=== PATIENT | female | born 1940 | race Caucasian/White ===

== ENCOUNTER → 2018-03-14 | Outpatient (CLI) | payer MEDICARE, OTHER ==
[~2018-03-14] MED LIST: ACEASPCAF PO; ATEN100; ATENOLOL PO; Armour Thyroid90 MG PO; B Complex1 EAC2 PO; CHLO25B PO; Cleocin HCl300 MG PO; DULO60; ESTRADIOL PO; Estradiol0.5 MG PO; Excedrin Extra1 EACH; GLIM4 PO; Galzin50 MG PO; HCTZ PO; HYDACE5; HYDACE5 PO; HYDCHL25; HYDMOR2 PO; HYDROCHLOROTHIAZIDE PO; LEVFLO500 PO; METF500 PO; MIRALAX119 GM; Metformin HCl750 MG PO; ONDA4ODT MM; ONDA4ODT PO; PENNAL50; PROBIOTIC COMP1 EACH PO; PROM25 PO; THYR60; THYR60 PO; TRAM50 PO; VICODIN HP 10-1 EACH PO; VITAMIN D32000 UNIT PO; [UNRECOGNIZED DRUG - REMARK]
[2018-03-14 13:11] LABS: Bilirubin, Urine Neg (Neg); Blood, Urine 2+ (Neg); Glucose Qualitative, Urine Neg (Neg); Ketones, Urine Neg (Neg); Leukocyte Esterase, Urine Neg (Neg); Nitrite, Urine Neg (Neg); Protein, Urine Neg (Neg); Specific Gravity, Urine 1.015 (1.003-1.022); Urobilinogen, Urine NORM (Normal)
[2018-03-14 13:39] LABS: Appearance, Urine Clear (Clear); Color, Urine Yellow (P-Yellow)
[2018-03-14 13:49] LABS: Bacteria Not Seen /hpf; Squamous Epithelial Cells Few /hpf (Few); White Blood Cells, Urine Not Seen /hpf (0-5)
== END ==
LOC: LAB SHORT 10:05 → LAB 10:05
PROVIDERS: Nurse Practitioner Family
DX: R35.0 Frequency of micturition (principal)
CPT/HCPCS: 81001

== ENCOUNTER → 2018-03-25 | Outpatient (CLI) | payer MEDICARE, OTHER | LOC: PLD 08:15 → LAB SHORT 08:15 | DX: D22.72 Melanocytic nevi of left lower limb, including hip (principal) | CPT/HCPCS: 88305 ==

== ENCOUNTER → 2018-05-02 | Outpatient (CLI) | payer MEDICARE, OTHER ==
[2018-05-02 14:57] LABS: Source, Urine Clean Catch
[2018-05-02 16:24] LABS: Appearance, Urine Clear (Clear); Bilirubin, Urine Neg (Neg); Blood, Urine 1+ (Neg); Color, Urine Yellow (P-Yellow); Glucose Qualitative, Urine Neg (Neg); Ketones, Urine Neg (Neg); Leukocyte Esterase, Urine Neg (Neg); Nitrite, Urine Neg (Neg); Protein, Urine Neg (Neg); Specific Gravity, Urine 1.005 (1.003-1.022); Urobilinogen, Urine NORM (Normal)
[2018-05-02 16:33] LABS: White Blood Cells, Urine 0-2 /hpf (0-5)
[2018-05-02 16:34] LABS: Bacteria Few /hpf; Squamous Epithelial Cells Not Seen /hpf (Few)
== END ==
LOC: LAB 14:55 → LAB SHORT 14:55
PROVIDERS: Nurse Practitioner Family
DX: N39.41 Urge incontinence (principal)
CPT/HCPCS: 81001

== ENCOUNTER 2018-12-05 20:29 | Emergency (ER) | payer MEDICARE, OTHER ==
[~2018-12-05] VITALS: Ht 167.6 cm; Wt 81.7 kg
[2018-12-05] MEDS ORDERED: Klor-Con 1010 MEQ PO (22:38)
[2018-12-05] MEDS ORDERED: TORSE20 PO (22:39)
[2018-12-05] MEDS ORDERED: SPIR25 PO (22:39)
[2018-12-05] MEDS ORDERED: DULO60 PO (22:40)
[2018-12-05] MEDS ORDERED: METO25ER PO (22:40)
[2018-12-05 23:31] LABS: BASOPHILS ABSOLUTE AUTO 0.08 K/mm3 (0.00-0.23); BASOPHILS PERCENT AUTO 1 % (0-2); EOSINOPHILS ABSOLUTE AUTO 0.25 K/mm3 (0.00-0.68); EOSINOPHILS PERCENT AUTO 3 % (0-6); Hematocrit 37.1 % (33.0-51.0); Hemoglobin 12.3 g/dL (11.5-16.0); IMMATURE GRAN ABSOLUTE AUTO 0.02 K/mm3 (0.00-0.10); IMMATURE GRAN PERCENT AUTO 0 % (0-1); LYMPHOCYTES ABSOLUTE AUTO 2.69 K/mm3 (0.84-5.20); LYMPHOCYTES PERCENT AUTO 31 % (21-46); MONOCYTES ABSOLUTE AUTO 0.86 K/mm3 (0.16-1.47); MONOCYTES PERCENT AUTO 10 % (4-13); Mean Corpuscular HGB 31.6 pg (26.0-34.0); Mean Corpuscular HGB Conc 33.2 g/dL (31.5-36.5); Mean Corpuscular Volume 95 fL (80-100); Mean Platelet Volume 9.2 fL (9.1-12.4); NEUTROPHILS ABSOLUTE AUTO 4.84 K/mm3 (1.96-9.15); NEUTROPHILS PERCENT AUTO 55 % (41-73); Platelet Count 318 K/mm3 (150-400); RDW Coefficient Variation 12.6 % (11.7-14.2); RDW Standard Deviation 43.6 fL (35.1-46.3); Red Blood Cell Count 3.89 M/mm3 (3.80-5.20); White Blood Cell Count 8.74 K/mm3 (4.00-11.30)
[2018-12-05 23:50] LABS: Alanine Aminotransfer (ALT/SGP 16 U/L (12-78); Albumin, Blood 3.7 g/dL (3.4-5.0); Alk Phos 128 U/L (50-136); Anion Gap 10 mmol/L (6-16); Aspartate Aminotrans (AST/SGOT 14 U/L (12-37); Bilirubin, Total 0.4 mg/dL (0.1-1.0); Blood Urea Nitrogen 31 mg/dL (8-24); Bun/Creatinine Ratio 19.4 (12.0-20.0); CO2, Blood 24 mmol/L (21-32); Calcium, Blood 8.9 mg/dL (8.5-10.1); Chloride, Blood 104 mmol/L (98-108); Globulin, Blood 3.6 g/dL (2.2-4.0); Glomerular Filtration Rate 33 (60-); Glucose, Blood 97 mg/dL (70-99); Potassium, Blood 3.9 mmol/L (3.5-5.5); Sodium, Blood 138 mmol/L (136-145); Total Protein, Blood 7.3 g/dL (6.4-8.2); Troponin I <0.015 ng/mL (0.000-0.040)
[2018-12-06 00:15] LABS: Source, Urine Clean Catch
[2018-12-06 00:24] LABS: Bilirubin, Urine Neg (Neg); Blood, Urine Neg (Neg); Glucose Qualitative, Urine Neg (Neg); Ketones, Urine 1+ (Neg); Leukocyte Esterase, Urine Neg (Neg); Nitrite, Urine Neg (Neg); Protein, Urine Neg (Neg); Specific Gravity, Urine 1.015 (1.003-1.022); Urobilinogen, Urine NORM (Normal)
[2018-12-06 00:27] LABS: Appearance, Urine Clear (Clear); Color, Urine Yellow (P-Yellow)
== END 2018-12-06 01:00 | disposition home or self-care (01) ==
LOC: ER 20:29
PROVIDERS: Emergency Medicine
DX: N17.9 Acute kidney failure, unspecified (principal); E86.0 Dehydration; Z88.0 Allergy status to penicillin; Z88.8 Allergy status to other drugs, medicaments and biological substances; Z88.1 Allergy status to other antibiotic agents; Z79.899 Other long term (current) drug therapy; Z79.84 Long term (current) use of oral hypoglycemic drugs; I10 Essential (primary) hypertension; E03.9 Hypothyroidism, unspecified
CPT/HCPCS: 36415; 51798; 71046; 80053; 81003; 83880; 84484; 85025; 93005; 93010; 96360; 96361; 99284-25; J7030; P9612

== ENCOUNTER → 2018-12-30 | Outpatient (CLI) | payer MEDICARE, OTHER ==
[~2018-12-30] MED LIST changes: +DULO60 PO; +Klor-Con 1010 MEQ PO; +METO25ER PO; +SPIR25 PO; +TORSE20 PO
[2018-12-31 14:09] LABS: HPV 16 Negative (Negative); HPV 18 Negative (Negative); HPV OTHER HR TYPES Negative (Negative)
== END | disposition home or self-care (01) ==
LOC: LAB 11:10 → LAB SHORT 11:10
PROVIDERS: Nurse Practitioner Women's Health
DX: Z12.72 Encounter for screening for malignant neoplasm of vagina (principal); Z91.89 Other specified personal risk factors, not elsewhere classified
CPT/HCPCS: 87624; G0123

== ENCOUNTER → 2019-01-16 | Outpatient (CLI) | payer MEDICARE, OTHER ==
[2019-01-16 13:06] LABS: Microalbumin, Urine Quant. <5.000 mg/L (0.000-20.000)
== END | disposition home or self-care (01) ==
LOC: LAB 05:35 → LAB SHORT 05:35 → LAB FUT 01-14 12:55
PROVIDERS: Internal Medicine Nephrology
DX: N18.3 Chronic kidney disease, stage 3 (moderate) (principal); D63.1 Anemia in chronic kidney disease; N25.81 Secondary hyperparathyroidism of renal origin; E55.9 Vitamin D deficiency, unspecified; E78.00 Pure hypercholesterolemia, unspecified; R76.9 Abnormal immunological finding in serum, unspecified; R94.5 Abnormal results of liver function studies; R94.6 Abnormal results of thyroid function studies; D51.8 Other vitamin B12 deficiency anemias; D52.8 Other folate deficiency anemias; D50.9 Iron deficiency anemia, unspecified
CPT/HCPCS: 81050; 82043; 82570; 84156

== ENCOUNTER → 2020-11-30 | Outpatient (CLI) | payer MEDICARE, OTHER ==
[2020-11-30 11:03] LABS: Source, Urine Clean Catch
[2020-11-30 13:36] LABS: Appearance, Urine Clear (Clear); Blood, Urine 2+ (Neg); Color, Urine Yellow (P-Yellow); Glucose Qualitative, Urine Neg (Neg); Ketones, Urine Neg (Neg); Leukocyte Esterase, Urine Neg (Neg); Nitrite, Urine Neg (Neg); Protein, Urine Neg (Neg); Specific Gravity, Urine 1.015 (1.003-1.022); Urobilinogen, Urine 1+ (Normal); pH, Urine 6.5 (5.0-8.0)
[2020-11-30 13:47] LABS: Bilirubin, Urine 1+ (Neg)
[2020-11-30 13:48] LABS: Bacteria Rare /hpf; Calcium Oxalate Crystals Mod /hpf; Red Blood Cells, Urine Not Seen /hpf (0-2); Squamous Epithelial Cells Few /hpf (Few); White Blood Cells, Urine Not Seen /hpf (0-5)
== END | disposition home or self-care (01) ==
LOC: LAB 11:02 → LAB SHORT 11:02 → LAB FUT 11-30 10:40
PROVIDERS: Internal Medicine Nephrology
DX: N39.0 Urinary tract infection, site not specified (principal)
CPT/HCPCS: 81001

== ENCOUNTER 2021-03-23 09:35 | Day surgery (SDC) | payer MEDICARE, OTHER ==
[~2021-03-23] VITALS: Ht 162.6 cm; Wt 90.4 kg
== END 2021-03-23 11:57 | disposition home or self-care (01) ==
LOC: ORSCSDS 09:35
PROVIDERS: Internal Medicine Gastroenterology
PROC: 0DBM8ZX Excision of Descending Colon, Via Natural or Artificial Opening Endoscopic, Diagnostic (ICD-10-PCS; principal; 2021-03-23 10:45)
PROC: 0DBL8ZX Excision of Transverse Colon, Via Natural or Artificial Opening Endoscopic, Diagnostic (ICD-10-PCS; principal; 2021-03-23 10:45)
DX: R10.31 Right lower quadrant pain (principal); Z86.010 Personal history of colon polyps; D12.3 Benign neoplasm of transverse colon; D12.4 Benign neoplasm of descending colon; K57.30 Diverticulosis of large intestine without perforation or abscess without bleeding; K64.8 Other hemorrhoids; Z80.0 Family history of malignant neoplasm of digestive organs; Z79.84 Long term (current) use of oral hypoglycemic drugs; I10 Essential (primary) hypertension; E03.9 Hypothyroidism, unspecified; E11.9 Type 2 diabetes mellitus without complications; G47.33 Obstructive sleep apnea (adult) (pediatric); Z79.899 Other long term (current) drug therapy
CPT/HCPCS: 82947; 88305; J2704; J7120

== ENCOUNTER 2021-05-24 06:24 | Day surgery (SDC) | payer MEDICARE, OTHER ==
[~2021-05-24] VITALS: Ht 162.6 cm; Wt 92.0 kg
[~2021-05-24 06:24] MED LIST changes: +ACET500 PO; +ARMOUR THYROID90 M1 PO; +ENTRESTO 24 MG1 EAC2 PO; +ESTRADIOL42.5 GM; +HYDACE10B PO; +K-Dur20 MEQ PO; +METFORMIN HCL500 MG PO; +MULTIPLE VITAM1 EACH PO; +Vitamin B-Comp1 EAC7 PO; +Voltaren100 GM
--- NOTE | 2021-05-24 09:12 | NUR ---
05/24/21 0912 Jessica Cervantes DROP IN AT 0649; PLEDGET IN AT [phone]
== END 2021-05-24 08:37 | disposition home or self-care (01) ==
LOC: ORSCSDS 06:24
PROVIDERS: Ophthalmology
PROC: 08RJ3JZ Replacement of Right Lens with Synthetic Substitute, Percutaneous Approach (ICD-10-PCS; principal; 2021-05-24 08:00)
DX: H25.11 Age-related nuclear cataract, right eye (principal); I10 Essential (primary) hypertension; G47.33 Obstructive sleep apnea (adult) (pediatric); E03.9 Hypothyroidism, unspecified; Z79.899 Other long term (current) drug therapy; Z79.84 Long term (current) use of oral hypoglycemic drugs; E66.9 Obesity, unspecified; Z68.34 Body mass index [BMI] 34.0-34.9, adult
CPT/HCPCS: 82947; J2001; J2250; J3010; J3301; J7040; J7120; V2632

== ENCOUNTER 2021-06-14 06:46 | Day surgery (SDC) | payer MEDICARE, OTHER ==
[~2021-06-14] VITALS: Ht 162.6 cm; Wt 92.4 kg
--- NOTE | 2021-06-14 07:01 | NUR ---
06/14/21 0700 Monica Garcia TETRACAINE APPLIED TO LEFT EYE AT 0656 AND PLEDGET APPLIED TO LEFT EYE AT 0659
--- NOTE | 2021-06-14 08:42 | NUR ---
06/14/21 0842 MAULIK DOUGHERTY PAIN IN L EYE 05/11
== END 2021-06-14 08:43 | disposition home or self-care (01) ==
LOC: ORSCSDS 06:46
PROVIDERS: Ophthalmology
PROC: 08RK3JZ Replacement of Left Lens with Synthetic Substitute, Percutaneous Approach (ICD-10-PCS; principal; 2021-06-14 08:00)
DX: H25.12 Age-related nuclear cataract, left eye (principal); I10 Essential (primary) hypertension; G47.33 Obstructive sleep apnea (adult) (pediatric); E03.9 Hypothyroidism, unspecified; I50.9 Heart failure, unspecified; Z79.899 Other long term (current) drug therapy; Z79.84 Long term (current) use of oral hypoglycemic drugs
CPT/HCPCS: 82947; A9270; J2001; J2250; J3010; J3300; J3301; J7040; V2632

== ENCOUNTER 2022-02-14 10:47 | Day surgery (SDC) | payer MEDICARE, OTHER ==
[~2022-02-14] VITALS: Ht 162.6 cm; Wt 93.3 kg
--- NOTE | 2022-02-14 13:26 | NUR ---
02/14/22 1326 Tara Solis PT. INSTRUCTED TO KEEP AN EYE ON HER BP. BP ELEVATED HERE. DR. FINNEGAN AWARE PT. WITH ELEVATED BP & HADN'T TAKEN HER METOPROLOL FOR 2 DAYS. PT. HAD VERBALIZED THAT SHE HAD RUN OUT OF METOPROLOL.
== END 2022-02-14 13:00 | disposition home or self-care (01) ==
LOC: ORSCSDS 10:47
PROVIDERS: Internal Medicine Gastroenterology
PROC: 0DB78ZX Excision of Stomach, Pylorus, Via Natural or Artificial Opening Endoscopic, Diagnostic (ICD-10-PCS; principal; 2022-02-14 12:00)
PROC: 0DB98ZX Excision of Duodenum, Via Natural or Artificial Opening Endoscopic, Diagnostic (ICD-10-PCS; principal; 2022-02-14 12:00)
PROC: 0D758ZZ Dilation of Esophagus, Via Natural or Artificial Opening Endoscopic (ICD-10-PCS; principal; 2022-02-14 12:00)
DX: R10.11 Right upper quadrant pain (principal); K92.1 Melena; K22.2 Esophageal obstruction; K44.9 Diaphragmatic hernia without obstruction or gangrene; I10 Essential (primary) hypertension; G47.33 Obstructive sleep apnea (adult) (pediatric); J44.9 Chronic obstructive pulmonary disease, unspecified; E11.9 Type 2 diabetes mellitus without complications; N18.30 Chronic kidney disease, stage 3 unspecified; Z79.84 Long term (current) use of oral hypoglycemic drugs; Z79.899 Other long term (current) drug therapy; E66.9 Obesity, unspecified; Z68.35 Body mass index [BMI] 35.0-35.9, adult
CPT/HCPCS: 82947; 88305; 88342; C1726; J2704; J7120

== ENCOUNTER 2023-07-23 21:28 | Inpatient (IN) | payer MEDICARE, OTHER ==
[~2023-07-23] VITALS: Ht 165.1 cm; Wt 96.3 kg
[~2023-07-23 21:28] MED LIST changes: -ESTRADIOL42.5 GM; +ESTRADIOL42.5 GM VAG
[2023-07-23 22:29] LABS: BASOPHILS ABSOLUTE AUTO 0.06 K/mm3 (0.00-0.23); BASOPHILS PERCENT AUTO 1 % (0-2); EOSINOPHILS ABSOLUTE AUTO 0.08 K/mm3 (0.00-0.68); EOSINOPHILS PERCENT AUTO 1 % (0-6); Hematocrit 43.2 % (33.0-51.0); Hemoglobin 13.6 g/dL (11.5-16.0); IMMATURE GRAN ABSOLUTE AUTO 0.04 K/mm3 (0.00-0.10); IMMATURE GRAN PERCENT AUTO 1 % (0-1); LYMPHOCYTES PERCENT AUTO 14 % (21-46); MONOCYTES PERCENT AUTO 8 % (4-13); Mean Corpuscular HGB 29.6 pg (26.0-34.0); Mean Corpuscular HGB Conc 31.5 g/dL (31.5-36.5); Mean Corpuscular Volume 94 fL (80-100); NEUTROPHILS ABSOLUTE AUTO 6.68 K/mm3 (1.96-9.15); NEUTROPHILS PERCENT AUTO 76 % (41-73); Platelet Count 242 K/mm3 (150-400); RDW Coefficient Variation 13.2 % (11.7-14.2); White Blood Cell Count 8.76 K/mm3 (4.00-11.30)
[2023-07-23 22:32] LABS: Bicarbonate Venous 28.8 mmol/L (24.0-30.0); PCO2 Venous 60.3 mmHg (38-42); pH Blood Venous 7.34 (7.34-7.37)
[2023-07-23 22:53] LABS: Magnesium, Blood 1.7 mg/dL (1.6-2.4)
[2023-07-23 23:24] LABS: International Normalized Ratio 1.05
[2023-07-23 23:47] LABS: Albumin, Blood 3.6 g/dL (3.4-5.0); Albumin/Globulin Ratio 1.2 (0.8-1.8); Bilirubin, Total 0.7 mg/dL (0.1-1.0); Bun/Creatinine Ratio 17.3 (12.0-20.0); Calcium, Blood 8.8 mg/dL (8.5-10.1); Creatinine, Blood 1.1 mg/dL (0.40-1.00); Globulin, Blood 3.1 g/dL (2.2-4.0); Potassium, Blood 4.4 mmol/L (3.5-5.5); Total Protein, Blood 6.7 g/dL (6.4-8.2)
[2023-07-23 23:53] LABS: Source, Urine Straight Cath
[2023-07-23 23:58] LABS: Bilirubin, Urine Neg (Neg); Blood, Urine 1+ (Neg); Glucose Qualitative, Urine Neg (Neg); Ketones, Urine Neg (Neg); Leukocyte Esterase, Urine Neg (Neg); Nitrite, Urine Neg (Neg); Protein, Urine 1+ (Neg); Urobilinogen, Urine NORM (Normal)
[2023-07-24 00:09] LABS: Appearance, Urine Clear (Clear); Color, Urine Yellow (P-Yellow)
[2023-07-24 00:11] LABS: Bacteria Mod /hpf; Hyaline Casts 0-2 /lpf (0-2); Red Blood Cells, Urine 0-2 /hpf (0-2); Squamous Epithelial Cells Mod /hpf (Few); White Blood Cells, Urine 0-2 /hpf (0-5)
[2023-07-24 00:41] LABS: Adenovirus Not Detected (NOT DETECT); Bordetella pertussis Not Detected (NOT DETECT); Chlamydophila pneumoniae Not Detected (NOT DETECT); Coronavirus 229E Not Detected (NOT DETECT); Coronavirus HKU1 Not Detected (NOT DETECT); Coronavirus NL63 Not Detected (NOT DETECT); Coronavirus OC43 Not Detected (NOT DETECT); Human Metapneumovirus Not Detected (NOT DETECT); Human Rhinovirus/Enterovirus Not Detected (NOT DETECT); Influenza A/2009-H1 Not Detected (NOT DETECT); Influenza A/H1 Not Detected (NOT DETECT); Influenza A/H3 Not Detected (NOT DETECT); Influenza B Not Detected (NOT DETECT); Mycoplasma pneumoniae Not Detected (NOT DETECT); Parainfluenza Virus 1 Not Detected (NOT DETECT); Parainfluenza Virus 2 Not Detected (NOT DETECT); Parainfluenza Virus 3 Not Detected (NOT DETECT); Parainfluenza Virus 4 Not Detected (NOT DETECT); Respiratory Syncytial Virus Not Detected (NOT DETECT); SARS-Cov-2 (COVID-19), BioFire Not Detected (NOT DETECT)
[2023-07-24 04:00] VITALS: BP 100/62
[2023-07-24] MEDS ORDERED: LYRICA150 M1 PO (04:00)
[2023-07-24] MEDS ORDERED: FLUT.05NI (04:00)
[2023-07-24] MEDS ORDERED: Diovan160 MG PO (04:03)
[2023-07-24] MEDS ORDERED: BUPRENO-NALOX1 EAC2 SL (04:04)
[2023-07-24 04:39] VITALS: BP 118/72
--- NOTE | 2023-07-24 04:57 | NUR ---
ARRIVAL TO 329 NOTE: RECEIVED REPORT FROM FLASH DESIGNER LIZET STONE ~ 0400 THIS AM. PT SHORTLY ARRIVED TO ROOM 329 VIA [facility]. ABLE TO 1 ASSIST TRANSFER TO HOSPITAL BED WITH MINIMAL ASSISTANCE. GAIT IS A LITTLE UNSTEADY HOWEVER. A/Ox3 AND COOPERATIVE WITH CARE. KNEW WHERE SHE WAS, , PRESIDENT, BUT NOT THE MONTH. ANSWERS QUESTIONS APPROPRIATELY AND ABLE TO MAKE HER NEEDS KNOWN. CARDIAC, REMAINS IN SR 80-90'S W/1DEGREE BLOCK PER TELE REPORT WITH NO REPORTS OF CP OR PRESSURE. SBP REMAINS STABLE RANGING 100-110'S. RESPIRATORY, MAINTAINS SPO2 >90% ON 2L VIA WITH NO REPORTS OF SOB OR DYSPNEA AT REST. BASELINE PT IS ON RA, FIN INSPIRATORY CRACKLES NOTED IN THE BASES. GI/, ABD SOFT/NON-TENDER, BS PRESENT IN ALL QUADRANTS. ABLE TO ABULATE TO BSC TO VOID. ASSESSED PT FOR RISKS OF ANY IGNITION SOURCES WELL BEHAVIORS FOR INCREASED RISKS OF FIRE DANGER. PT EDUCATED ON COMMON SOURCES OF IGNITION WELL NEED TO KEEP A SAFE ENVIRONMENT. PT VOICED UNDERSTANDING. NO NEW ORDERS AT THIS TIME, WILL REPORT TO ONCOMING RN. TERENCE CLEMENTE UPON ARRIVAL TO ROOM 329
[2023-07-24 05:23] LABS: Base Excess Venous 6.3 mmol/L; Bicarbonate Venous 28.1 mmol/L (24.0-30.0); PCO2 Venous 65.9 mmHg (38-42)
[2023-07-24 05:47] LABS: BASOPHILS ABSOLUTE AUTO 0.08 K/mm3 (0.00-0.23); BASOPHILS PERCENT AUTO 1 % (0-2); EOSINOPHILS ABSOLUTE AUTO 0.14 K/mm3 (0.00-0.68); EOSINOPHILS PERCENT AUTO 2 % (0-6); Hematocrit 40.8 % (33.0-51.0); Hemoglobin 12.7 g/dL (11.5-16.0); IMMATURE GRAN ABSOLUTE AUTO 0.03 K/mm3 (0.00-0.10); IMMATURE GRAN PERCENT AUTO 0 % (0-1); LYMPHOCYTES ABSOLUTE AUTO 1.87 K/mm3 (0.84-5.20); LYMPHOCYTES PERCENT AUTO 21 % (21-46); MONOCYTES ABSOLUTE AUTO 1.04 K/mm3 (0.16-1.47); MONOCYTES PERCENT AUTO 12 % (4-13); Mean Corpuscular HGB 29.5 pg (26.0-34.0); Mean Corpuscular HGB Conc 31.1 g/dL (31.5-36.5); Mean Corpuscular Volume 95 fL (80-100); Mean Platelet Volume 10.5 fL (9.1-12.4); NEUTROPHILS ABSOLUTE AUTO 5.69 K/mm3 (1.96-9.15); NEUTROPHILS PERCENT AUTO 64 % (41-73); Platelet Count 213 K/mm3 (150-400); RDW Coefficient Variation 13.3 % (11.7-14.2); RDW Standard Deviation 47.1 fL (35.1-46.3); Red Blood Cell Count 4.31 M/mm3 (3.80-5.20); White Blood Cell Count 8.85 K/mm3 (4.00-11.30)
[2023-07-24 06:02] LABS: Albumin, Blood 3.2 g/dL (3.4-5.0); Albumin/Globulin Ratio 1.1 (0.8-1.8); Bilirubin, Total 0.8 mg/dL (0.1-1.0); Calcium, Blood 8.5 mg/dL (8.5-10.1); Creatinine, Blood 1.25 mg/dL (0.40-1.00); Magnesium, Blood 1.7 mg/dL (1.6-2.4); Potassium, Blood 4.5 mmol/L (3.5-5.5); Total Protein, Blood 6.2 g/dL (6.4-8.2)
[2023-07-24 07:21] VITALS: BP 149/84
--- NOTE | 2023-07-24 11:08 | NUR ---
VERBAL FROM DR. SINGH TO DC ENTRESTO AND ORDER LYRICA 150MG.
--- NOTE | 2023-07-24 13:56 | NUR ---
1345- RN RECEIVED VERBAL FROM DR. SINGH VIA PHONE TO ORDER METOPROLOL 50MG DAILY, LOSARTAN 100MG (PT'S HOME DOSE IS 160MG VALSARTAN), PREGABALIN 150MG BID, AND DC GABAPENTIN. RN VERIFIED WITH AURELIO IN PHARMACY THAT VALSARTAN 160MG=LOSARTAN 100MG.
--- NOTE | 2023-07-24 18:40 | NUR ---
DC- NO ACUTE EVENTS THIS SHIFT. PT IS ON RA NOW. AAOX3. PT IS DISORIENTED TO SITUATION. SBA TO THE BATHROOM.
[2023-07-24 20:38] VITALS: BP 160/98
[2023-07-25 03:19] VITALS: BP 145/88
--- NOTE | 2023-07-25 04:09 | NUR ---
SHIFT SUMMARY; NO ACUTE CHANGES OVERNIGHT. THE PT IS AXO X3, FORGETFUL AT TIMES. THE PT IS A STANDBY ASSIST, ALTHOUGH SHE DOES NOT ALWAYS CALL BEFORE ATTEMPTING OOB. IT IS FOR THIS REASON THE BED ALARM IS ON THE PTS BED FOR THE DURATION OF THE NIGHT. THE PT HAS BEEN SLEEPING IN BED FOR THE DURATION OF THE NIGHT. THE PT DENIES ANY SOB, CHEST PAIN/PRESSURE OR PAIN. THE PT DID ENDORSE SOME NAUSEA AT THE BEGINNING OF THE SHIFT BUT WAS MEDICATED W/ PO ZOFRAN W/ MILD RELIEF. CURRENTLY THE PT IS SLEEPING IN BED WITH THE BED IN THE LOWEST POSITION AND THE CALL LIGHT AT BEDSIDE. FIRE SAFETY MAINTAINED T/O THE NIGHT.
[2023-07-25 05:19] LABS: BASOPHILS ABSOLUTE AUTO 0.06 K/mm3 (0.00-0.23); BASOPHILS PERCENT AUTO 1 % (0-2); EOSINOPHILS ABSOLUTE AUTO 0.32 K/mm3 (0.00-0.68); EOSINOPHILS PERCENT AUTO 5 % (0-6); Hemoglobin 13.5 g/dL (11.5-16.0); IMMATURE GRAN ABSOLUTE AUTO 0.01 K/mm3 (0.00-0.10); IMMATURE GRAN PERCENT AUTO 0 % (0-1); LYMPHOCYTES ABSOLUTE AUTO 1.94 K/mm3 (0.84-5.20); LYMPHOCYTES PERCENT AUTO 30 % (21-46); MONOCYTES ABSOLUTE AUTO 0.77 K/mm3 (0.16-1.47); MONOCYTES PERCENT AUTO 12 % (4-13); Mean Corpuscular HGB 29.7 pg (26.0-34.0); Mean Corpuscular HGB Conc 32.1 g/dL (31.5-36.5); Mean Corpuscular Volume 92 fL (80-100); NEUTROPHILS ABSOLUTE AUTO 3.44 K/mm3 (1.96-9.15); NEUTROPHILS PERCENT AUTO 53 % (41-73); Platelet Count 216 K/mm3 (150-400); RDW Coefficient Variation 12.8 % (11.7-14.2); RDW Standard Deviation 43.4 fL (35.1-46.3); Red Blood Cell Count 4.55 M/mm3 (3.80-5.20); White Blood Cell Count 6.54 K/mm3 (4.00-11.30)
[2023-07-25 05:46] LABS: Albumin, Blood 3.3 g/dL (3.4-5.0); Anion Gap 5 mmol/L (6-16); Blood Urea Nitrogen 20 mg/dL (8-24); CO2, Blood 33 mmol/L (21-32); Calcium, Blood 8.8 mg/dL (8.5-10.1); Chloride, Blood 102 mmol/L (98-108); Creatinine, Blood 1.11 mg/dL (0.40-1.00); Glomerular Filtration Rate 50 (60-); Glucose, Blood 141 mg/dL (70-99); Magnesium, Blood 1.9 mg/dL (1.6-2.4); Phosphorus, Blood 3.8 mg/dL (2.5-4.9); Sodium, Blood 140 mmol/L (136-145)
[2023-07-25 07:28] VITALS: BP 162/94
[2023-07-25] MEDS ORDERED: FURO20 PO (12:45)
--- NOTE | 2023-07-25 13:45 | NUR ---
SHIFT SUMMARY AND DISCHARGE PATIENT DISCHARGED TO HOME. DISCHARGE INSTRUCTIONS REVIEWED WITH PATIENT. IV DC'D. BELONGINGS SENT HOME WITH PATIENT. PATIENT ABLE TO INDEPENDENTLY AMBULATE IN THE ROOM. EDUCATION PROVIDED RELATED TO DIURETICS AND THE IMPORTANCE OF WEIGHING. PATIENT DECLINED INSULIN DOSE PRIOR TO DISCHARGE BECAUSE PATIENT DOES NOT USE INSULIN AT HOME. PATIENT TO RESTART ORAL AGENTS AT HOME.
== END 2023-07-25 14:20 | disposition home health service (06) | DRG 291 ==
LOC: ER 21:28 → MEDS 21:29
PROVIDERS: Family Medicine; Student in an Organized Health Care Education/Training Program; ADMIT Student in an Organized Health Care Education/Training Program
DX: I11.0 Hypertensive heart disease with heart failure (principal); G92.8 Other toxic encephalopathy; I50.33 Acute on chronic diastolic (congestive) heart failure; J96.01 Acute respiratory failure with hypoxia; J96.02 Acute respiratory failure with hypercapnia; N17.9 Acute kidney failure, unspecified; Z66 Do not resuscitate; Z51.5 Encounter for palliative care; G89.29 Other chronic pain; E03.9 Hypothyroidism, unspecified; I44.0 Atrioventricular block, first degree; E66.9 Obesity, unspecified; E11.9 Type 2 diabetes mellitus without complications; E78.5 Hyperlipidemia, unspecified; F03.90 Unspecified dementia, unspecified severity, without behavioral disturbance, psychotic disturbance, mood disturbance, and anxiety; Z90.49 Acquired absence of other specified parts of digestive tract; Z90.710 Acquired absence of both cervix and uterus; Z98.890 Other specified postprocedural states; Z20.822 Contact with and (suspected) exposure to COVID-19; Z90.721 Acquired absence of ovaries, unilateral; Z91.148 Patient's other noncompliance with medication regimen for other reason; Z88.0 Allergy status to penicillin; Z88.1 Allergy status to other antibiotic agents; Z88.8 Allergy status to other drugs, medicaments and biological substances; Z79.891 Long term (current) use of opiate analgesic; Z79.84 Long term (current) use of oral hypoglycemic drugs; Z79.899 Other long term (current) drug therapy; Z68.30 Body mass index [BMI] 30.0-30.9, adult
CPT/HCPCS: 0202U; 36415; 51701; 70450; 71045; 74177; 80053; 80069; 81001; 82803; 82947; 83605; 83735; 83880; 84145; 84443; 85025; 85610; 87040; 93005; 93010; 93306; 96374-59; 97116; 97162; 99285-25; A9270; J1644; J1650; J1940; Q9967

== ENCOUNTER 2024-06-17 13:02 | Day surgery (SDC) | payer MEDICARE, OTHER ==
[~2024-06-17] VITALS: Ht 162.6 cm; Wt 97.6 kg
[~2024-06-17 13:02] MED LIST changes: +Atropine Sulfate 0.1 MG/ML 10ML SYR ONE; +BUPRENO-NALOX1 EAC2 SL; +Diovan160 MG PO; +FLUT.05NI; +FURO20 PO; +Glycopyrrolate 0.2 MG/ML 1MLVIAL ONE; +LYRICA150 M1 PO; +Lactated Ringer's 1,000 ML IV ONE; +Lidocaine 2% 5 ML SDV ONE; +Lidocaine HCl/Pf 1% 5 ML VIAL ONE; +Methylene Blue 1% 100 MG/10 ML VIAL ONE; +Ondansetron HCl 2 MG / ML 2ML Vial ONE; +ePHEDrine Sulfate 50 MG/ML 1ML Injection ONE
[2024-06-17] MEDS ORDERED: Lactated Ringer's 1,000 ML IV ONE (13:40)
[2024-06-17] MEDS ORDERED: propofoL 50 ML IV ONE (14:09)
[2024-06-17 16:04] VITALS: BP 102/69
== END 2024-06-17 15:38 | disposition home or self-care (01) ==
LOC: ORSCSDS 13:02
PROVIDERS: Specialist
PROC: 0DBH8ZX Excision of Cecum, Via Natural or Artificial Opening Endoscopic, Diagnostic (ICD-10-PCS; principal; 2024-06-17 14:00)
PROC: 0DBK8ZX Excision of Ascending Colon, Via Natural or Artificial Opening Endoscopic, Diagnostic (ICD-10-PCS; principal; 2024-06-17 14:00)
DX: Z12.11 Encounter for screening for malignant neoplasm of colon (principal); D12.0 Benign neoplasm of cecum; D12.2 Benign neoplasm of ascending colon; K64.8 Other hemorrhoids; K57.30 Diverticulosis of large intestine without perforation or abscess without bleeding; Z86.010 Personal history of colon polyps; E11.21 Type 2 diabetes mellitus with diabetic nephropathy; E11.22 Type 2 diabetes mellitus with diabetic chronic kidney disease; I12.9 Hypertensive chronic kidney disease with stage 1 through stage 4 chronic kidney disease, or unspecified chronic kidney disease; N18.9 Chronic kidney disease, unspecified; I25.10 Atherosclerotic heart disease of native coronary artery without angina pectoris; I50.9 Heart failure, unspecified; G47.33 Obstructive sleep apnea (adult) (pediatric); Z79.84 Long term (current) use of oral hypoglycemic drugs; Z79.899 Other long term (current) drug therapy
CPT/HCPCS: 82947; 88305; J0461; J2001; J2405; J2704; J7120; Q9968